=== PATIENT | male | born 1950 | race Caucasian/White ===

== ENCOUNTER 2022-06-02 14:58 | Emergency (ER) | payer OTHER ==
[~2022-06-02] VITALS: Ht 172.7 cm; Wt 51.4 kg
[2022-06-02] MEDS ORDERED: MS CONTIN 115 MG/TAB PO (15:30)
[2022-06-02] MEDS ORDERED: TYLENOL EXTRA500 M2 PO (15:31)
[2022-06-02] MEDS ORDERED: LEADER MELATONIN5 MG PO (15:32)
[2022-06-02] MEDS ORDERED: GOOD SENSE ASPI81 M1 PO (15:32)
[2022-06-02] MEDS ORDERED: NEURONTIN300 M1 PO (15:32)
[2022-06-02] MEDS ORDERED: WELLBUTRIN SR150 M3 PO (15:32)
[2022-06-02] MEDS ORDERED: ZETIA10 M1 PO (15:33)
[2022-06-02] MEDS ORDERED: OXYCODONE HCL10 M1 PO (15:34)
[2022-06-02] MEDS ORDERED: VITAMIN C500 M7 PO (15:34)
[2022-06-02] MEDS ORDERED: MIRALAX17 GM PO (15:35)
[2022-06-02] MEDS ORDERED: DULCOLAX PO (15:36)
[2022-06-02 15:50] LABS: MEAN CELL VOLUME 108 fl (78-100); MEAN CORPUSCULAR HEMOGLOBIN 34 pg (27-31); MEAN CORPUSCULAR HGB CONC 31 g/dL (33-37); MEAN PLATELET VOLUME 8.7 fl (7.4-10.4); PLATELET COUNT 395 K/mm3 (130-400); RED CELL DISTRIBUTION WIDTH 17.8 % (11.5-14.5)
[2022-06-02 15:55] LABS: ALBUMIN 2.7 g/dL (3.4-4.8); POTASSIUM 4.4 mmol/L (3.5-5.1)
[2022-06-02 15:56] LABS: CALCIUM 9.4 mg/dL (8.3-10.5)
[2022-06-02 15:57] LABS: RED BLOOD COUNT 1.46 M/mm3 (4.20-5.60); TOTAL PROTEIN 5.9 g/dL (6.2-8.1)
[2022-06-02 15:58] LABS: HEMATOCRIT 15.8 % (42.0-52.0); HEMOGLOBIN 4.9 g/dL (13.5-18.0)
[2022-06-02 16:13] LABS: EOS % 0.3 % (0.0-4.0)
[2022-06-02 16:14] LABS: BASO # 0.03 K/mm3 (0.02-0.10); EOS # 0.05 K/mm3 (0.04-0.40); MONO # 0.65 K/mm3 (0.20-0.80); NEU # 13.71 K/mm3 (1.40-6.50)
[2022-06-02 16:15] LABS: HYPOCHROMIA 3+; LYMPHOCYTE 4 % (20-51); MONOCYTE 3 % (3-10); NEUTROPHILS 93 % (42-75)
[2022-06-02 16:19] LABS: TOTAL BILIRUBIN 0.3 mg/dL (0.2-1.2)
[2022-06-02 16:57] LABS: URINE APPEARANCE CLEAR; URINE COLOR YELLOW
[2022-06-02 16:58] LABS: URINE BILIRUBIN NEGATIVE (NEGATIVE); URINE BLOOD NEGATIVE (NEGATIVE); URINE GLUCOSE NEGATIVE (NEGATIVE); URINE KETONE NEGATIVE (NEGATIVE); URINE LEUKOCYTE ESTERASE NEGATIVE (NEGATIVE); URINE NITRATE NEGATIVE (NEGATIVE); URINE PROTEIN(semi-quant) NEGATIVE (NEGATIVE); URINE UROBILINOGEN NORMAL (NORMAL); URINE WBC 0-1 /hpf (0-3)
[2022-06-02 17:04] LABS: BAND 0 % (0-10)
[2022-06-02 20:29] LABS: URINE APPEARANCE CLOUDY; URINE COLOR YELLOW
[2022-06-02 20:30] LABS: URINE BILIRUBIN NEGATIVE (NEGATIVE); URINE BLOOD NEGATIVE (NEGATIVE); URINE GLUCOSE NEGATIVE (NEGATIVE); URINE KETONE NEGATIVE (NEGATIVE); URINE LEUKOCYTE ESTERASE NEGATIVE (NEGATIVE); URINE NITRATE NEGATIVE (NEGATIVE); URINE PROTEIN(semi-quant) TRACE (NEGATIVE); URINE UROBILINOGEN NORMAL (NORMAL)
[2022-06-03 07:15] LABS: HEMATOCRIT 23.6 % (42.0-52.0); HEMOGLOBIN 7.8 g/dL (13.5-18.0)
[2022-06-03 08:53] VITALS: BP 118/67
== END 2022-06-03 08:34 | disposition home or self-care (01) ==
LOC: ED 14:58
PROVIDERS: Family Medicine
DX: D64.9 Anemia, unspecified (principal); C76.0 Malignant neoplasm of head, face and neck; Z87.891 Personal history of nicotine dependence
CPT/HCPCS: J7050

== ENCOUNTER 2022-06-21 18:25 | Emergency (ER) | payer OTHER ==
[~2022-06-21] VITALS: Ht 175.3 cm; Wt 50.0 kg
[~2022-06-21 18:25] MED LIST: DULCOLAX PO; GOOD SENSE ASPI81 M1 PO; LEADER MELATONIN5 MG PO; MIRALAX17 GM PO; MS CONTIN 115 MG/TAB PO; NEURONTIN300 M1 PO; OXYCODONE HCL10 M1 PO; TYLENOL EXTRA500 M2 PO; VITAMIN C500 M7 PO; WELLBUTRIN SR150 M3 PO; ZETIA10 M1 PO
[2022-06-21] MEDS ORDERED: LIBTAYO350 MG/7 M IV (18:40)
[2022-06-21 19:14] LABS: ALBUMIN 3.2 g/dL (3.4-4.8)
[2022-06-21 19:15] LABS: HEMATOCRIT 29.9 % (42.0-52.0); HEMOGLOBIN 9.3 g/dL (13.5-18.0); MEAN CELL VOLUME 97 fl (78-100); MEAN CORPUSCULAR HEMOGLOBIN 30 pg (27-31); MEAN CORPUSCULAR HGB CONC 31 g/dL (33-37); PLATELET COUNT 463 K/mm3 (130-400); POTASSIUM 4.5 mmol/L (3.5-5.1); RED BLOOD COUNT 3.08 M/mm3 (4.20-5.60); RED CELL DISTRIBUTION WIDTH 17.2 % (11.5-14.5); WHITE BLOOD COUNT 12.8 K/mm3 (4.8-10.8)
[2022-06-21 19:17] LABS: TOTAL PROTEIN 6.9 g/dL (6.2-8.1)
[2022-06-21 19:19] LABS: TOTAL BILIRUBIN 0.3 mg/dL (0.2-1.2)
[2022-06-21 19:32] LABS: BAND 2 % (0-10); HYPOCHROMIA 1+; LYMPHOCYTE 4 % (20-51); MONOCYTE 2 % (3-10); NEUTROPHILS 90 % (42-75)
[2022-06-21 19:33] LABS: TEAR DROP CELLS 1+
[2022-06-21 20:35] LABS: PH-URINE 7.5 (5.0 - 8.0); URINE APPEARANCE CLEAR; URINE BILIRUBIN NEGATIVE (NEGATIVE); URINE BLOOD NEGATIVE (NEGATIVE); URINE COLOR YELLOW; URINE GLUCOSE NEGATIVE (NEGATIVE); URINE KETONE NEGATIVE (NEGATIVE); URINE LEUKOCYTE ESTERASE NEGATIVE (NEGATIVE); URINE NITRATE NEGATIVE (NEGATIVE); URINE PROTEIN(semi-quant) NEGATIVE (NEGATIVE); URINE UROBILINOGEN NORMAL (NORMAL)
[2022-06-21 20:41] LABS: URINE WBC 0-1 /hpf (0-3)
[2022-06-21] MEDS ORDERED: AMOXICILLIN AND1 TA2 PO (21:51)
[2022-06-21 22:19] VITALS: BP 128/72
== END 2022-06-21 22:20 | disposition home or self-care (01) ==
LOC: ED 18:25
PROVIDERS: Family Medicine
DX: C76.0 Malignant neoplasm of head, face and neck (principal); Z87.891 Personal history of nicotine dependence
CPT/HCPCS: J0696; J7030